=== PATIENT | female | born 1965 | race American Indian/Alaskan Native ===

== ENCOUNTER 2018-11-22 06:53 | Emergency (ER) | payer OTHER ==
[2018-11-22 07:27] LABS: Basophils % (Auto) 0.6 % (0.0-1.8); Eosinophils # (Auto) 0.2 K/mm3 (0.0-0.4); Eosinophils % (Auto) 3.4 % (0.0-4.3); Hematocrit 38.9 % (30.3-42.9); Lymphocytes # (Auto) 1.6 K/mm3 (1.2-5.4); Lymphocytes % (Auto) 33.6 % (13.4-35.0); Mean Corpuscular HGB Conc 33 % (30-34); Mean Corpuscular Volume 96 fl (79-97); Monocytes # (Auto) 0.5 K/mm3 (0.0-0.8); Monocytes % (Auto) 10.3 % (0.0-7.3); Platelet Count 162 K/mm3 (140-440); Red Blood Count 4.06 M/mm3 (3.65-5.03); Red Cell Distribution Width 13.4 % (13.2-15.2)
[2018-11-22 07:34] LABS: INR 1.04 (0.87-1.13); Partial Thromboplastin Time 25.3 Sec. (24.2-36.6)
[2018-11-22 07:42] LABS: Alanine Aminotransferase 6 units/L (7-56); Albumin 3.9 g/dL (3.9-5); BUN/Creatinine Ratio 20; Blood Urea Nitrogen 12 mg/dL (7-17); Calcium 8.9 mg/dL (8.4-10.2); Hemolysis Index 22
--- NOTE | 2018-11-22 07:42 | Emergency Department Report ---
ED General Adult HPI - General Chief complaint: Medical Clearance Stated complaint: HYPOTENSION Time Seen by Provider: 11/22/18 07:03 Source: EMS Mode of arrival: Stretcher Limitations: Other - History of Present Illness Initial comments: Dictated female who is transferred from [facility]. She appears to be in a catatonic-like state. According to the record she has been nonverbal and noncommunicative. Her by mouth intake has been poor per staff if any recently. She was instead simply sent here not for the above but because a blood pressure reading was found to be 50 systolic. Medics arrived on the scene and found her blood pressure to be normal. She is transported to this facility remained normotensive. He has a history of urinary incontinence and bipolar disorder. She is medically cleared at another facility prior to transfer to [facility] where she has been for several days. -: days(s) - Related Data Allergies Allergy/AdvReac Type Severity Reaction Status Date / Time No Known Allergies Allergy Unverified 11/22/18 07:10 ED Review of Systems ROS: Stated complaint: HYPOTENSION Other details as noted in HPI Comment: Unobtainable due to pts medical conditions ED Past Medical Hx - Past Medical History Previous Medical History?: Yes Hx Psychiatric Treatment: Yes (bipolar) Additional medical history: bladder, and bowl incontinence - Surgical History Past Surgical History?: No - Social History Smoking Status: Unknown if ever smoked Substance Use Type: None ED Physical Exam - General Limitations: Other General appearance: alert (but noncommunicative) - Head Head exam: Present: atraumatic, normocephalic - Eye Eye exam: Present: PERRL, EOMI. Absent: scleral icterus - ENT ENT exam: Present: mucous membranes dry (perhaps somewhat) - Neck Neck exam: Present: normal inspection - Respiratory Respiratory exam: Present: normal lung sounds bilaterally. Absent: respiratory distress - Cardiovascular Cardiovascular Exam: Present: regular rate, normal rhythm. Absent: systolic murmur, diastolic murmur, rubs, gallop - GI/Abdominal GI/Abdominal exam: Present: soft, normal bowel sounds. Absent: distended, tenderness, guarding, rebound, rigid - Extremities Exam Extremities exam: Present: normal inspection - Back Exam Back exam: Present: normal inspection - Neurological Exam Neurological exam: Present: altered (nonverbal), CN II-XII intact (on limited exam). Absent: motor sensory deficit (on limited exam) - Psychiatric Psychiatric exam: Present: depressed, flat affect - Skin Skin exam: Present: warm, dry, intact, normal color. Absent: rash ED Course Vital Signs 11/22/18 11/22/18 07:11 07:15 Temperature 98.7 F 97.6 F Pulse Rate 102 H 106 H Respiratory 16 13 Rate Blood Pressure 132/90 131/85 Blood Pressure 131/85 [Left] O2 Sat by Pulse 99 98 Oximetry ED Medical Decision Making - Lab Data Result diagrams: 11/22/18 07:10 11/22/18 07:10 Laboratory Results - last 24 hr 11/22/18 11/22/18 11/22/18 07:10 07:10 07:10 WBC 4.7 RBC 4.06 Hgb 13.0 Hct 38.9 MCV 96 MCH 32 MCHC 33 RDW 13.4 Plt Count 162 Lymph % (Auto) 33.6 Pierce % (Auto) 10.3 H Eos % (Auto) 3.4 Baso % (Auto) 0.6 Lymph # 1.6 Pierce # 0.5 Eos # 0.2 Baso # 0.0 Seg Neutrophils % 52.1 Seg Neutrophils # 2.4 PT 13.3 INR 1.04 APTT 25.3 Sodium 139 Potassium 3.9 Chloride 101.5 Carbon Dioxide 27 Anion Gap 14 BUN 12 Creatinine 0.6 L Estimated GFR > 60 BUN/Creatinine Ratio 20 Glucose 105 H Lactic Acid Calcium 8.9 Magnesium Total Bilirubin Direct Bilirubin Indirect Bilirubin AST ALT Alkaline Phosphatase Total Creatine Kinase 23 L CK-MB (CK-2) < 1.0 CK-MB (CK-2) Rel Index 4.3 H Troponin T Total Protein Albumin Albumin/Globulin Ratio Urine Color Urine Turbidity Urine pH Ur Specific [place] Urine Protein Urine Glucose (UA) Urine Ketones Urine Blood Urine Nitrite Urine Bilirubin Urine Urobilinogen Ur Leukocyte Esterase Urine WBC (Auto) Urine RBC (Auto) U Epithel Cells (Auto) 11/22/18 11/22/18 11/22/18 07:10 07:10 09:23 WBC RBC Hgb Hct MCV MCH MCHC RDW Plt Count Lymph % (Auto) Pierce % (Auto) Eos % (Auto) Baso % (Auto) Lymph # Pierce # Eos # Baso # Seg Neutrophils % Seg Neutrophils # PT INR APTT Sodium Potassium Chloride Carbon Dioxide Anion Gap BUN Creatinine Estimated GFR BUN/Creatinine Ratio Glucose Lactic Acid 0.90 Calcium Magnesium 2.30 Total Bilirubin 0.30 Direct Bilirubin < 0.2 Indirect Bilirubin 0.1 AST 15 ALT 6 L Alkaline Phosphatase 73 Total Creatine Kinase CK-MB (CK-2) CK-MB (CK-2) Rel Index Troponin T < 0.010 Total Protein 6.8 Albumin 3.9 Albumin/Globulin Ratio 1.3 Urine Color Yellow Urine Turbidity Clear Urine pH 7.0 Ur Specific [place] 1.019 Urine Protein <15 mg/dl Urine Glucose (UA) Neg Urine Ketones Neg Urine Blood Neg Urine Nitrite Neg Urine Bilirubin Neg Urine Urobilinogen < 2.0 Ur Leukocyte Esterase Neg Urine WBC (Auto) < 1.0 Urine RBC (Auto) 2.0 U Epithel Cells (Auto) < 1.0 Critical care attestation.: If time is entered above; I have spent that time in minutes in the direct care of this critically ill patient, excluding procedure time. ED Disposition Clinical Impression: Volume depletion Bipolar disorder Qualifiers: Active/Remission status: currently active Current bipolar episode type: depressed Current episode severity: severe Psychotic features: with psychotic features Qualified Code(s): F31.5 - Bipolar disorder, current episode depressed, severe, with psychotic features Disposition: DC-01 TO HOME OR SELFCARE Is pt being admited?: No Does the pt Need Aspirin: No Condition: Stable Instructions: Dehydration (ED) Additional Instructions: The patient is medically clear for further psychiatric care at [facility]. Return to the emergency department any acute change or problem. Encourage oral intake. Time of Disposition: 10:04
[2018-11-22 07:53] LABS: Bilirubin,Direct < 0.2 mg/dL (0-0.2); Creatine Kinase MB < 1.0 ng/mL (0.0-4.0)
[2018-11-22] MEDS: NACL 0.9% 1000 ML 1,000 ML IV ONE ×2 (08:30→09:23)
[2018-11-22 09:35] LABS: Bilirubin,Urine NEG (Negative); Blood,Urine NEG (Negative); Color,Urine Yellow (Yellow); Protein,Urine <15 mg/dL mg/dL (Negative); Urobilinogen,Urine < 2.0 mg/dL (<2.0); WBC,Urine < 1.0 /HPF (0.0-6.0)
[2018-11-22 11:07] VITALS: BP 116/54
== END 2018-11-22 11:20 ==
LOC: ED 06:53
DX: F31.9 Bipolar disorder, unspecified (principal); E86.9 Volume depletion, unspecified
CPT/HCPCS: 36415; 80048; 80076; 81001; 82140; 82550; 82553; 83735; 84484; 85025; 85610; 85730; 93005; 93010; 96360; 99284; J7030